=== PATIENT | female | born 1960 | race African-American/Black ===

== ENCOUNTER 2017-05-31 13:41 | Emergency (ER) | payer OTHER ==
[~2017-05-31] VITALS: Ht 165.1 cm; Wt 83.9 kg
--- NOTE | 2017-05-31 13:44 | NUR ---
pt bibra from home to er bed 12. pt appears anxious. c/o midsternal chest pain describing it as pressure and thightening. gowned and placed on monitor. stable vitals noted. awaiting md rodriguez.
--- NOTE | 2017-05-31 13:58 | NUR ---
sylvia garnishment specialist at bedside for eval.
[2017-05-31] MEDS ORDERED: ASPIRIN 325 MG TABLET PO ONE (14:00)
[2017-05-31] MEDS ORDERED: ONDANSETRON HCL/PF 4 MG/2 ML VIAL IVP ONE (14:00)
[2017-05-31] MEDS ORDERED: HYDROMORPHONE INJ 2 MG/ML DISP.SYRIN IV ONE (14:00)
[2017-05-31] MEDS ORDERED: LORAZEPAM INJ 2 MG/ML VIAL IV ONE (14:00)
[2017-05-31] MEDS ORDERED: NITROGLYCERIN 0.4 MG/TAB BOTTLE SL ONE (14:00)
[2017-05-31] MEDS ORDERED: IV NS 0.9% 1,000 ML BAG IV ONE (14:00)
--- NOTE | 2017-05-31 14:10 | NUR ---
iv line started blood drawn and sent to lab.
[2017-05-31] MEDS ORDERED: HYDROMORPHONE INJ 2 MG/ML DISP.SYRIN ONE (14:13)
[2017-05-31] MEDS ORDERED: ONDANSETRON HCL/PF 4 MG/2 ML VIAL ONE (14:13)
[2017-05-31] MEDS ORDERED: LORAZEPAM INJ 2 MG/ML VIAL ONE (14:14)
--- NOTE | 2017-05-31 14:21 | NUR ---
radiology at bedside for chest xray.
[2017-05-31 14:45] LABS: INR 1.08 (0.87-1.13); PROTHROMBIN TIME 11.2 SECS (9.5-12.7)
[2017-05-31 14:47] LABS: CALCIUM, SERUM 10.7 mg/dL (8.5-10.1); CARBON DIOXIDE 23 mmol/L (21-32); CHLORIDE 104 mmol/L (98-107); GLUCOSE 113 mg/dL (74-106); POTASSIUM 3.2 mmol/L (3.5-5.1); SODIUM SERUM 141 mmol/L (136-145); UREA NITROGEN, BLOOD 11 mg/dL (7-18)
[2017-05-31 14:50] LABS: BASOPHILS % (AUTO) 0.5 % (0.0-2.0); EOSINOPHILS # (AUTO) 0.1 /CMM (0.0-0.7); EOSINOPHILS % (AUTO) 1.1 % (0.0-6.0); HEMATOCRIT 45 % (33-45); HEMOGLOBIN 14.5 g/dL (11.5-14.8); LYMPHOCYTES # (AUTO) 3.3 /CMM (0.8-4.8); LYMPHOCYTES % (AUTO) 49.5 % (20.0-44.0); MEAN CORPUSCULAR HEMOGLOBIN 28 PG (26.0-33.0); MEAN CORPUSCULAR HGB CONC 33 g/dl (31.0-36.0); MEAN CORPUSCULAR VOLUME 85 fL (82-100); MONOCYTES # (AUTO) 0.4 /CMM (0.1-1.30); NEUTROPHILS # (AUTO) 2.9 /CMM (1.8-8.9); NEUTROPHILS % (AUTO) 42.9 % (43.0-81.0); PLATELET COUNT (AUTO) 361 /CMM (150-450); RDW COEFFICIENT OF VARIATION 13.7 (11.5-15.0); RED BLOOD CELL COUNT(AUTO) 5.22 MIL/uL (4.0-5.2); WHITE BLOOD COUNT (AUTO) 6.7 K/uL (4.3-11.0)
[2017-05-31 14:58] LABS: TROPONIN I < 0.017 ng/mL (0.00-0.056)
[2017-05-31] MEDS ORDERED: POTASSIUM CHLORIDE 20 MEQ TAB.PRT.SR PO ONE ×2 (16:00→16:02)
--- NOTE | 2017-05-31 18:23 | NUR ---
Patient discharged to home in stable condition. Written and verbal after care instructions given. Patient verbalizes understanding of instruction.Patient discharged to home in stable condition. Written and verbal after care instructions given. Patient verbalizes understanding of instruction.
[2017-05-31 18:24] VITALS: BP 132/74
== END 2017-05-31 18:26 | disposition home or self-care (01) ==
LOC: ER 13:46
DX: E87.6 Hypokalemia (principal); F41.9 Anxiety disorder, unspecified; F43.9 Reaction to severe stress, unspecified; F43.21 Adjustment disorder with depressed mood; I51.7 Cardiomegaly; J45.909 Unspecified asthma, uncomplicated; R79.1 Abnormal coagulation profile
CPT/HCPCS: 36415; 71010; 80048; 84484 ×2; 85025; 85730; 93005 ×3; 96374; 96375; 99285; A4606; J1170; J2060; J2405; J7030; Z7610